=== PATIENT | female | born 1965 | race Asian ===

== ENCOUNTER → 2017-07-11 | Outpatient (CLI) | payer BC | LOC: COL.RAD 10:16 | DX: G43.909 Migraine, unspecified, not intractable, without status migrainosus (principal); R42 Dizziness and giddiness | CPT/HCPCS: A9585 ==

== ENCOUNTER 2018-05-05 06:58 | Day surgery (SDC) | payer BC ==
[~2018-05-05] VITALS: Ht 175.3 cm; Wt 132.0 kg
[~2018-05-05 06:58] MED LIST: COZAAR 50MG50 MG/TAB PO; FERROUS SU325 MG/TAB PO; LIPITOR 40MG TA40 MG PO; MAXALT10 MG PO; PRENATAL PLUS PO; TRIAMCINOLONE A15 GM TP; VTAMINC250TA PO
[2018-05-05] MEDS ORDERED: TYLENOL 8 HR PO (07:26)
[2018-05-05 07:55] VITALS: BP 152/91; PULSE 80; TEMP 97.9
[2018-05-05 09:10] VITALS: BP 139/77; PULSE 82; TEMP 97.8
[2018-05-05 09:25] VITALS: BP 109/72; PULSE 68
== END 2018-05-05 09:55 | disposition home or self-care (01) ==
LOC: SDCO 06:58
DX: K92.1 Melena (principal); K63.5 Polyp of colon; K64.1 Second degree hemorrhoids; K64.0 First degree hemorrhoids
CPT/HCPCS: J2250; J3010; J7030

== ENCOUNTER 2018-10-28 09:58 | Day surgery (SDC) | payer BC ==
[2018-10-28] VITALS (12 sets, daily range): BP systolic 109–134; BP diastolic 66–128; PULSE 74–90; TEMP 97.5
[~2018-10-28] VITALS: Ht 175.3 cm; Wt 137.4 kg
[~2018-10-28 09:58] MED LIST changes: -LIPITOR 40MG TA40 MG PO; +LIPITOR 80MG80 MG PO; +TYLENOL 8 HR PO
[2018-10-28 10:36] LABS: HEMATOCRIT 44.9 % (37.0-47.0); HEMOGLOBIN 14.5 g/dl (12.5-16.0); MEAN CELL VOLUME 88 fl (80.0-100.0); MEAN CORPUSCULAR HEMOGLOBIN 29 pg (27.0-31.0); MEAN CORPUSCULAR HGB CONC 32 g/dl (33.0-37.0); MEAN PLATELET VOLUME 11.6 fl (7.4-10.4); PLATELET COUNT 185 K/mm3 (130-400); RED BLOOD COUNT 5.08 M/mm3 (4.10-5.30)
[2018-10-28 10:44] LABS: INR 1.1 (0.8-3.0); PROTHROMBIN TIME 12.5 SECONDS (9.7-12.8)
[2018-10-28 10:49] LABS: CALCIUM 9.4 mg/dL (8.4-10.2); CREATININE, serum 0.74 mg/dL (0.52-1.25); POTASSIUM 3.6 mmol/L (3.4-5.0)
[2018-10-28] MEDS ORDERED: NITROSTAT0.4 MG/TAB SL (10:49)
[2018-10-28] MEDS ORDERED: ASPIRIN E.C. 8181 MG PO (10:51)
[2018-10-28] MEDS ORDERED: GLUCOPHAGE500 MG/TAB PO (10:53)
[2018-10-28] MEDS ORDERED: TOPROL XL 25MG25 MG PO (10:54)
[2018-10-28] MEDS ORDERED: DRAMAMINE 50MG50 MG PO (10:55)
--- NOTE | 2018-10-28 11:20 | NUR ---
PT TO PROCEDURE AT THIS TIME.
--- NOTE | 2018-10-28 11:41 | NUR ---
ALL MEDICATIONS GIVEN IN PROCEDURE WITH VERBAL ORDER FROM MD CABRERA. 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 SEE MERGE FOR RASS AND MODERATE SEDATION ASSESSMENTS DURING AND POST PROCEDURE.
--- NOTE | 2018-10-28 16:50 | NUR ---
Discharge instructions given to pt.Pt verbalizes understanding.INT removed,catheter tip intact.Pt escorted out via wheelchair by this nurse.
== END 2018-10-28 16:51 | disposition home or self-care (01) ==
LOC: COL.CAR 09:58
PROVIDERS: Internal Medicine Cardiovascular Disease
DX: I25.10 Atherosclerotic heart disease of native coronary artery without angina pectoris (principal); E11.9 Type 2 diabetes mellitus without complications; I10 Essential (primary) hypertension; F41.9 Anxiety disorder, unspecified; D50.9 Iron deficiency anemia, unspecified; G43.909 Migraine, unspecified, not intractable, without status migrainosus; E78.5 Hyperlipidemia, unspecified; J45.909 Unspecified asthma, uncomplicated; E66.9 Obesity, unspecified; Z79.82 Long term (current) use of aspirin
CPT/HCPCS: J1644; J2250; J3010; Q9967

== ENCOUNTER → 2019-02-24 | Outpatient (CLI) | payer BC ==
[~2019-02-24] MED LIST changes: +ASPIRIN E.C. 8181 MG PO; +DRAMAMINE 50MG50 MG PO; +GLUCOPHAGE500 MG/TAB PO; +NITROSTAT0.4 MG/TAB SL; +TOPROL XL 25MG25 MG PO
== END ==
LOC: MC.RAD 13:55
DX: N60.01 Solitary cyst of right breast (principal)
CPT/HCPCS: G0279

== ENCOUNTER 2021-05-26 14:27 | Emergency (ER) | payer BC ==
[~2021-05-26] VITALS: Ht 175.3 cm; Wt 137.7 kg
[2021-05-26 14:53] VITALS: TEMP 97.4
[2021-05-26 15:11] LABS: BASO % 0.2 % (0.0-2.0); GRAN # 13.7 K/mm3 (1.4-6.5); GRAN % 81.7 % (42.2-75.2); HEMATOCRIT 42.4 % (37.0-47.0); HEMOGLOBIN 13.7 g/dl (12.5-16.0); LYMPH % 11.9 % (20.0-51.0); MEAN CELL VOLUME 86 fl (80.0-100.0); MEAN CORPUSCULAR HEMOGLOBIN 28 pg (27.0-31.0); MEAN CORPUSCULAR HGB CONC 32 g/dl (33.0-37.0); MEAN PLATELET VOLUME 11.4 fl (7.4-10.4); MONO % 5.7 % (1.7-9.3); PLATELET COUNT 242 K/mm3 (130-400); RED BLOOD COUNT 4.94 M/mm3 (4.10-5.30); REDCELL DISTRIBUTION WIDTH-CV 13.7 % (11.5-14.5)
[2021-05-26 15:29] LABS: ALBUMIN 3.9 gm/dL (3.5-5.0); BILIRUBIN,TOTAL 0.7 mg/dL (0.2-1.2); C-REACTIVE PROTEIN 0.12 mg/dL (0.00-0.50); CALCIUM 9.9 mg/dL (8.4-10.2); CREATININE, serum 0.98 mg/dL (0.57-1.11); POTASSIUM 3.7 mmol/L (3.5-4.5); TOTAL PROTEIN 7.8 gm/dL (6.2-8.1)
[2021-05-26 17:00] VITALS: BP 129/85; PULSE 85
== END 2021-05-26 17:00 | disposition home or self-care (01) ==
LOC: COL.ER 14:27
PROVIDERS: Physician Assistant
DX: R68.2 Dry mouth, unspecified (principal); R06.82 Tachypnea, not elsewhere classified; E11.9 Type 2 diabetes mellitus without complications; I10 Essential (primary) hypertension; F41.9 Anxiety disorder, unspecified; G43.909 Migraine, unspecified, not intractable, without status migrainosus; E78.5 Hyperlipidemia, unspecified; D50.9 Iron deficiency anemia, unspecified; Z79.899 Other long term (current) drug therapy; Z79.84 Long term (current) use of oral hypoglycemic drugs; Z79.1 Long term (current) use of non-steroidal anti-inflammatories (NSAID)
CPT/HCPCS: J1200; J2930; J7030; Q9967

== ENCOUNTER 2021-05-27 03:06 | Emergency (ER) | payer BC ==
[~2021-05-27] VITALS: Ht 167.6 cm; Wt 90.9 kg
[2021-05-27 03:10] VITALS: TEMP 97.2
[2021-05-27 05:04] VITALS: BP 136/73; PULSE 76
== END 2021-05-27 05:04 | disposition home or self-care (01) ==
LOC: COL.ER 03:06
DX: R09.89 Other specified symptoms and signs involving the circulatory and respiratory systems (principal); E11.9 Type 2 diabetes mellitus without complications; I10 Essential (primary) hypertension; E78.5 Hyperlipidemia, unspecified; F41.9 Anxiety disorder, unspecified; G43.909 Migraine, unspecified, not intractable, without status migrainosus; Z79.84 Long term (current) use of oral hypoglycemic drugs; Z79.899 Other long term (current) drug therapy
CPT/HCPCS: J1200; J2930

== ENCOUNTER → 2021-08-14 | Outpatient (CLI) | payer BC | LOC: MC.RAD 08:45 | DX: N63.20 Unspecified lump in the left breast, unspecified quadrant (principal) ==